=== PATIENT | female | born 1975 | race Caucasian/White ===

== ENCOUNTER 2018-02-23 13:10 | Emergency (ER) | payer OTHER ==
[~2018-02-23] VITALS: Ht 149.9 cm; Wt 60.4 kg
[2018-02-23 13:21] VITALS: Ht 149.9 cm; Wt 60.4 kg
[2018-02-23 14:33] LABS: BASOPHIL % 0.3 % (0-2); PLATELET COUNT 387 x10^3mcL (130-400); RED CELL DISTRIBUTION WIDTH 12.1 % (11.5-14.5)
[2018-02-23 14:47] LABS: CALCIUM 8.6 mg/dL (8.5-10.1); CARBON DIOXIDE 25.9 mmol/L (21-32); CHLORIDE SERUM 108 mmol/L (98-107); CREATININE SERUM 0.6 mg/dL (0.6-1.0); GFR1 > 60 mL/min; GLUCOSE SERUM 103 mg/dL (74-106); POTASSIUM SERUM 3.7 mmol/L (3.5-5.1); SODIUM SERUM 142 mmol/L (136-145)
[2018-02-23 14:55] LABS: ALBUMIN 3.4 g/dL (3.4-5.0); ALKALINE PHOSPHATASE 68 U/L (46-116); ALT/SGPT 24 U/L (14-59); AST/SGOT 18 U/L (15-37); LIPASE 256 IU/L (73-393); TOTAL PROTEIN, SERUM 7.1 g/dL (6.4-8.2)
[2018-02-23 15:15] LABS: microscopic required? NO
[2018-02-23 16:00] LABS: urine erythrocyte NEGATIVE (NEGATIVE)
[2018-02-23 16:40] VITALS: BP 120/58
== END 2018-02-23 16:40 | disposition home or self-care (01) ==
LOC: ED 13:10
PROVIDERS: Emergency Medicine
DX: R10.12 Left upper quadrant pain (principal); I10 Essential (primary) hypertension; E78.5 Hyperlipidemia, unspecified; Z90.49 Acquired absence of other specified parts of digestive tract; Z88.6 Allergy status to analgesic agent
CPT/HCPCS: 36415

== ENCOUNTER 2019-05-31 07:16 | Inpatient (IN) | payer OTHER ==
[~2019-05-31] VITALS: Ht 152.4 cm; Wt 61.9 kg
--- NOTE | 2019-05-31 07:30 | NUR ---
PT C/O TEARING LEFT FLANK PAIN SINCE 05/23/19 WITH INCREASING PAIN X1 DAY WITH 1 EPISODE OF VOMITING THIS AM, PT STS SHE IS ALSO CONSTIPATED HOWEVER "THE CONSTIPTION IS NORMAL FOR ME" PT REPORTS RECENT KIDNEY STONE REMOVAL PROCEDURE ON 05/23/19 PT STS "THEY PUT SOMETHING UP WHERE IF PEE I THINK A STENT" PT DENIES ANY ACTIVE BLEEDING AT THIS TIME, PT DENIES ANY RECENT TRAUMA AND/OR INJURY, PT DENIES ANY URINARY S/S AT THIS TIME, PT AAOX4, RESPS E/U, SKIN IS PINK DRY WARM AND INTACT, ABD SOFT, ROUND AND NONDISTENDED, PT PLACED ON FULL CM, NSR, AT BEDSIDE
--- NOTE | 2019-05-31 08:04 | NUR ---
EKG IN PROGRESS
[2019-05-31 08:20] LABS: BASOPHIL % 0.1 % (0-2); RED CELL DISTRIBUTION WIDTH 13.7 % (11.5-14.5)
--- NOTE | 2019-05-31 08:27 | NUR ---
PT AMBULATORY WITH STEADY GAIT TO RESTROOM
[2019-05-31 08:38] LABS: CALCIUM 7.8 mg/dL (8.5-10.1); CARBON DIOXIDE 22.5 mmol/L (21-32); CHLORIDE SERUM 102 mmol/L (98-107); GFR1 > 60 mL/min; GLUCOSE SERUM 108 mg/dL (74-106); POTASSIUM SERUM 3.6 mmol/L (3.5-5.1); SODIUM SERUM 137 mmol/L (136-145)
[2019-05-31 08:43] LABS: ALKALINE PHOSPHATASE 110 U/L (46-116); ALT/SGPT 48 U/L (14-59); AST/SGOT 58 U/L (15-37); BILIRUBIN TOTAL 0.41 mg/dL (0.20-1.00)
[2019-05-31 08:44] LABS: ALBUMIN 3.1 g/dL (3.4-5.0)
[2019-05-31 08:59] LABS: PLATELET COUNT 436 x10^3mcL (130-400)
--- NOTE | 2019-05-31 09:00 | NUR ---
PT TAKEN TO CT VIA HERMINIO
[2019-05-31 09:05] LABS: UA SPECIFIC GRAVITY <=1.005 (1.005-1.035); microscopic required? YES; urine erythrocyte 2+ (NEGATIVE)
--- NOTE | 2019-05-31 10:35 | NUR ---
PT ASLEEP BUT AROUSABLE IN POSITION OF COMFORT, RESPS E/U, AT BEDSIDE, CALL LIGHT WITHIN REACH
[2019-05-31] MEDS ORDERED: ZESTRIL20 MG PO (10:55)
[2019-05-31] MEDS ORDERED: METOPROLOL SUCC50 M2 PO (10:55)
--- NOTE | 2019-05-31 11:44 | NUR ---
PT ASLEEP BUT AROUSABLE IN POSITION OF COMFORT, RESPS E/U, VSS, NEW ICE PACK APPLIED TO BACK OF PT NECK
--- NOTE | 2019-05-31 11:57 | NUR ---
HYGIENE SUPPLIES AND NEW GOWN PROVIDED, BEDDING CHANGED WITH NEW LINEN
--- NOTE | 2019-05-31 12:50 | NUR ---
REPORT GIVEN TO AIXA BOURGEOIS TO RESUME CARE OF PT AT THIS TIME, MED SURG, PT AAOX4 AND STABLE FOR ADMIT
--- NOTE | 2019-05-31 13:15 | NUR ---
RECEIVED PT FROM ED VIA [facility], CAME IN DUE TO FLANK PAIN SINCE MAY 23. PT STATED THAT SHE HAD PROCEDURE DONE FOR HER KIDNEY STONES. AAOX4. C/O 8/10 ACHING FRONTAL HEADACHE AND MILD DIZZINESS ON AMBULATION. NO SOB NOTED, LUNG SOUNDS CTA. DENIES CHEST PAIN/PRESSURE. DENIES ABDOMINAL DISCOMFORT. 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 BOWEL SOUNDS HYPOACTIVE. ABLE TO PASS SOME GAS. LAST BM WAS 3 DAYS AGO. C/O MILD BURNING SENSATION ON URINATION. SIDE RAILS UPX2. CALL LIGHT ON REACH. PINEDA, CURBING STONECUTTER AT BEDSIDE TO DISCUSS PLAN OF CARE AND PT VERBALIZES UNDERSTANDING. ENDORSED TO PRIMARY NURSE NEDA FOR CONTINUITY OF CARE
[2019-05-31 13:26] VITALS: BP 156/81
[2019-05-31 13:37] VITALS: Ht 152.4 cm; Wt 61.9 kg
--- NOTE | 2019-05-31 15:40 | NUR ---
PT STATES BLADDER FEELS THOUGH IT IS FULL AT THIS TIME. ULTRASOUND AT BEDSIDE. WILL CONTINUE TO MONITOR
--- NOTE | 2019-05-31 17:35 | NUR ---
PT COMPLAINING OF "FEELING SICK". PT SHIVERING AND STATES THAT SHE FEELS LIKE SHE IS COLD. PT DENIES ANY NAUSEA OR FEELING DIZZY. PT TEMPERATURE IS 100.7 ORAL. IMPLEMENTED COOLING MEASURES AND WILL GIVE TYLENOL ORDERED. INFORMED PT TO KEEP BLANKETS AND SOCKS OFF. UNTIL TEMPERATURE HAS DECREASED. PT VERBALIZED UNDERSTANDING. FAMILY MEMBER AT BEDSIDE. WILL CONTINUE TO MONITOR.
[2019-05-31 18:04] VITALS: BP 182/89
--- NOTE | 2019-05-31 18:25 | NUR ---
RECHECKED PT TEMPERATURE AND IS 102.4 ORAL, RECHECKED 102.7. PT STATES FEELING BETTER THAN SHE DID BEFORE AND IS NO LONGER VISIBALL SHIVERING. PROVIDED MORE ICE PACKS AND REPLACED OLD ONES. AC TURNED ON AND BLANKETS REMOVED. REINFORCED EDUCATION TO PT, PT VERBALIZED UNDERSTANDING. WILL CONTINUE TO MONITOR.
--- NOTE | 2019-05-31 18:56 | NUR ---
RECHECKED TEMPERATURE AND IS 103.1 ORAL. PT STATES DOES NOT FEEL COLD AND IS NOT SHIVERING. NOTIFIED./
[2019-05-31 18:57] VITALS: BP 157/59
--- NOTE | 2019-05-31 19:30 | NUR ---
REC'D PT FROM DAY NURSE. FAMILY AT BEDSIDE. PT RESTING IN BED. AAOX4, SPEECH CLEAR, FOLLOWS COMMANDS. MED SURG, NO TELE. C/O PALMER 07/07. TO GIVE RECTAL TYLENOL. NO EDEMA NOTED. DENIES RESP DISTRESS OR SOB. BREATHING EVEN/UNLABORED ON RA. ABD SOFT/ROUND. C/O TENDERNESS TO L SIDE UPON PALPATION. DENIES PAIN AT REST. VOIDING FREELY. AMBULATORY. SKIN INTACT. IV TO RAC PATENT AND INFUSING, SITE WNL. CALL LIGHT WITHIN REACH, BED AT LOWEST POSITION. WILL CONTINUE TO MONITOR.
--- NOTE | 2019-05-31 19:31 | NUR ---
ENDORSED TO NURSE ANNIKA
[2019-05-31 20:49] VITALS: BP 158/72
--- NOTE | 2019-05-31 21:05 | NUR ---
PALMER 7/ AND TEMP 100.8 S/P RECTAL TYLENOL. DR. DOUGHERTY AND DR. PUENTE MADE AWARE. STATED OK TO MONITOR AND GIVE TYLENOL PRN. NO CHANGES IN ORDERS. NORCO GIVEN FOR PALMER. COOLING MEASURES IN PLACE. WILL CONTINUE TO MONITOR.
--- NOTE | 2019-05-31 21:20 | NUR ---
PT C/O CONSTIPATION. NO BM X4 DAYS. REQUESTING LAXITIVE IN AM D/T TYLENOL GIVEN RECTALLY EARLIER. DR. PUENTE AND DR. DOUGHERTY MADE AWARE.
--- NOTE | 2019-06-01 00:23 | NUR ---
PT RESTING IN BED WITH EYES CLOSED. LAYING ON L SIDE. BREATHING EVEN/UNLABORED ON RA. AWAKENS WITH VERBAL STIMULI. RECHECKED ORAL TEMP: 98.7. COOLING MEASURES IN PLACE. CALL LIGHT WITHIN REACH, BED AT LOWEST POSITION, AT BEDSIDE ON RECLINER. WILL CONTINUE TO MONITOR.
--- NOTE | 2019-06-01 03:09 | NUR ---
PT C/O 07/07 PALMER. NORCO GIVEN PER ORDER. WILL MONITOR FOR RELIEF.
[2019-06-01 03:54] VITALS: BP 182/68
[2019-06-01 05:04] VITALS: BP 139/67
--- NOTE | 2019-06-01 05:23 | NUR ---
PT SLEEPING. BREATHING EVEN/UNLABORED ON RA. AFEBRILE THIS MORNING. NO S/SX OF PAIN NOTED. CALL LIGHT WITHIN REACH, BED AT LOWEST POSITION. WILL ENDORSE TO DAY NURSE.
--- NOTE | 2019-06-01 06:07 | NUR ---
PT C/O PALMER 07/07. NORCO NOT DUE AT THIS TIME. TYLENOL GIVEN PER REQUEST. NO BM LAST NIGHT. MIRALAX GIVEN. COOLING MEASURES REMAIN IN PLACE. CALL LIGHT WITHIN REACH, BED AT LOWEST POSITION. WILL ENDORSE TO DAY NURSE.
[2019-06-01 06:22] LABS: BASOPHIL % 0.4 % (0-2); PLATELET COUNT 338 x10^3mcL (130-400); RED CELL DISTRIBUTION WIDTH 13.9 % (11.5-14.5)
[2019-06-01 06:42] LABS: CALCIUM 7.5 mg/dL (8.5-10.1); CARBON DIOXIDE 20.3 mmol/L (21-32); CHLORIDE SERUM 105 mmol/L (98-107); CREATININE SERUM 0.8 mg/dL (0.6-1.0); GFR1 > 60 mL/min; GLUCOSE SERUM 100 mg/dL (74-106); POTASSIUM SERUM 3.7 mmol/L (3.5-5.1); SODIUM SERUM 137 mmol/L (136-145)
--- NOTE | 2019-06-01 07:10 | NUR ---
RECEIVED REPORT FROM ANNIKA RN, PT IN BED W/ NO ACUTE DISTRESS
--- NOTE | 2019-06-01 07:15 | NUR ---
PT IN BED, IN NO ACUTE DISTRESS, VERBAL, ABLE TO MAKE NEEDS KNOWN, CALM AND COPPERATIVE, PERRLA, NO REDNESS/DRAINAGE, RESP EVEN, NO SOB/COUGH, MEDSURG, DENIED CP/PRESSURE, DENIED N/V, REPORTED PALMER, 04/06, DULL MEDICATED PER PRN EMAR, TAKEN WELL, CHEST RISE SYMMETRICALLY, BS ACTIVE X 4, REPORTED BURING DURING VOIDING, UA (+), ROCEPHIN IVPB, IV PATENT AND INFUSIGN WELL, PALP PULSES, CAP REFILL < 3S, SKIN D/W/C, ALL NEEDS ADDRESSED AT THIS TIME, SAFETY MONITOR, VARSHA TO MONITOR
[2019-06-01 08:08] VITALS: BP 132/71
--- NOTE | 2019-06-01 09:14 | NUR ---
AM MED GIVEN PER EMAR, TAKEN WELL, NO ASE NOTED AT THIS TIME, CONTINUE TO MONITOR
--- NOTE | 2019-06-01 10:30 | NUR ---
PT SLEEPING IN BED, IN NO APPARENT DISTRESS, FAMILY AT BEDSIDE, CONTINUE TO MONITOR
--- NOTE | 2019-06-01 12:54 | NUR ---
PT HAD LUNCH, TAKEN WELL, ASISTED TO BATHROOM, VOID X 1, BACK TO BED, RESTING W/ EYE CLOSED, REPORTED NO PAIN/DISCOMFORT AT THIS TIME, CONTINUE TO MONITOR
[2019-06-01 14:22] VITALS: BP 168/86
--- NOTE | 2019-06-01 14:24 | NUR ---
MACHINE SETTER SHEET METAL PINEDA ALANIZ MADE AWARE OF PT ENW V/S 98.1, 168/86 (104), 81, 97% RA, 20, 0/10, NNO, PT SLEEPING IN BED, IN NO ACUTE DISRESS, CONTINUE TO MONITOR
[2019-06-01 17:34] VITALS: BP 156/81
--- NOTE | 2019-06-01 17:40 | NUR ---
PT RESTING IN BED, IN NO ACUTE DISTRESS, RESP EVEN, MEDSURG, CHEST RISE SYMMETRICALLY, ABD ROUND AND NON-TENDER, IV PATENT AND INFUSING WELL, DRESSING CDI, FAMILY AT BEDSIDE, ALL NEEDS ADDRESSED AT THIS TIME, SAFETY PROTOCL FOLLOWED, WILL ENDORSE TO ONCOMING RN
--- NOTE | 2019-06-01 19:00 | NUR ---
RECEIVED PT FROM DAY SHIFT RN. PT IS ALERT AND ORIENTED TO PERSON PLACE TIME AND SITUATION AND IS ABLE TO FOLLOW COMMANDS. FAMILY IS CURRENTLY AT THE BEDSIDE. PT DENIES CHEST PAIN OR SHORTNESS OF BREATH ON ROOM AIR. THERE ARE NO USE OF ACCESSORY MUSCLES OR LABORED BREATHING ON ASSESSMENT. PT DENIES ANY BURNING WITH URINATION AT THIS TIME. DENIES FLANK PAIN AT THIS TIME. PT IS AMBULATORY INDEPENDENTLY BUT ENCOURAGED PT TO ASK FOR ASSISTANCE IF NEEDED WHEN ATTEMPTING TO AMBULATE. NS RUNNING THROUGH RAC 20G IV, CLEAN DRY AND INTACT. SAFETY MEASURES ARE IN PLACE. BED IS IN THE LOWEST POSITION. CALL LIGHT IS WITHIN REACH. WILL CONTINUE TO MONITOR PT.
[2019-06-01 20:59] VITALS: BP 166/82
--- NOTE | 2019-06-01 23:28 | NUR ---
PT RESTING IN BED AT THIS TIME. PT DENIES PAIN OR DISTRESS. BED IN LOWEST POSTION. TYLENOL RELIEVED HEADACHE PT STATES PAIN 0/10. WILL CONTINUE TO MONITOR
--- NOTE | 2019-06-02 02:17 | NUR ---
PT RESTING IN BED WITH EYES CLOSED. NO DISTRSS NOTED.
[2019-06-02 06:06] VITALS: BP 153/82
[2019-06-02 07:08] LABS: CALCIUM 7.3 mg/dL (8.5-10.1); CARBON DIOXIDE 25.6 mmol/L (21-32); CHLORIDE SERUM 108 mmol/L (98-107); CREATININE SERUM 0.7 mg/dL (0.6-1.0); GFR1 > 60 mL/min; GLUCOSE SERUM 100 mg/dL (74-106); POTASSIUM SERUM 3.4 mmol/L (3.5-5.1); SODIUM SERUM 142 mmol/L (136-145)
--- NOTE | 2019-06-02 07:45 | NUR ---
PATIENT A/OX4 ABLE TO MAKE NEEDS KNOWN AND FOLLOW COMMANDS. REPORTS HEADACHE 8.5/10, WILL MEDICATE. SPEECH CLEAR EQUAL TRACTOR SWEEPER DRIVER, PERIPHERAL PULSES PALPABLE, DENIES NUMBNESS/TINGLING, NO EDEMA. DENIES CHEST PAIN. LUNGS CTA, NO RESP DISTRESS ON RA. BOWEL SOUNDS HYPOACTIVE, STATES LAST BM 6 DAYS AGO AND REPORTS FEELING CONSTIPATED, WILL NOTIFY DR. DENIES N/V. VOIDS FREELY AND REPORTS NO LONGER FEELING PAIN UPON URINATION. SKIN INTACT. IV ACCESS TO [facility] SITE WNL. CALL LIGHT WITHIN REACH.
[2019-06-02 07:54] LABS: BASOPHIL % 0.5 % (0-2); PLATELET COUNT 341 x10^3mcL (130-400); RED CELL DISTRIBUTION WIDTH 13.6 % (11.5-14.5)
[2019-06-02 08:24] VITALS: BP 182/91
--- NOTE | 2019-06-02 10:16 | NUR ---
[facility] MADE AWARE THAT PATIENT IS REQUESTING RELIEF FOR CONSTIPATION, NO BM SINCE LAST THURSDAY (6 DAYS).
[2019-06-02 17:28] VITALS: BP 146/78
--- NOTE | 2019-06-02 17:31 | NUR ---
PATIENT C/O PERSISTENT HEADACHE. TYLENOL GIVEN. PATIENT REPORTS HAVING BM TODAY, GOOD AMOUNT.
--- NOTE | 2019-06-02 18:14 | NUR ---
PATIENT GOING DOWN TO RAD FOR CT HEAD. TORADOL ORDERED BY BUFFING WHEEL PRESSER CONTAINS ASA, PATIENT STATES SHE DEVELOPS SHIVERING WHEN SHE TAKES ASPIRIN, PATIENT WILLING TO TAKE TO HELP WITH HEADACHE. PHARMACIST NOIFIED. WILL MONITOR FOR ANY ALLERGIC REACTION WHILE ADMINISTERING.
--- NOTE | 2019-06-02 18:43 | NUR ---
PATIENT BACK FROM CT. TORADOL IV GIVEN FOR HEADACHE, NO ADVERSE REACTION OBSERVED. WILL CONT TO MONITOR AND ENDORSE TO NOC NURSE.
--- NOTE | 2019-06-02 20:04 | NUR ---
PT RECIEVED FROM DAY NURSE. PT RESTING IN BED AT THIS TIME. NO S/S OF PAIN OR DISCOMFORT. A/O X4, CALM AND COOPERATIVE AT THIS TIME. PT M/S DENIES CP, NV, DIZZINESS, OR PALPATATIONS. PALPABLE PULSES, NO EDEMA NOTED AT THIS TIME. BREATHING E/U ON RA. ABD SOFT AND ROUND. DENIES PAIN TO PALPATATION. AMBULATORY AT BASELINE. IV TO RAC INTACT AND INFUSING. ALL QUESTIONS AND CONCERNS ADDRESSED. BED AT LOWEST POSITON. CALL LIGHT WITHIN REACH. WILL CONTINUE TO MONITOR.
[2019-06-02 21:22] VITALS: BP 130/62
--- NOTE | 2019-06-02 22:50 | NUR ---
DR. PUENTE TALKED TO PTS MOM ELIUD VIA PHONE REGARDING PTS TRANSFER TO [facility]. PTS MOM AGREED OF PTS TRANSFER PER DR PUENTE. PT SPOKEN WITH HER MOM AND PT STATED MOM WILL BE HERE BEFORE THE TRANSFER.
[2019-06-03 05:13] VITALS: BP 140/72
--- NOTE | 2019-06-03 06:14 | NUR ---
PT RESTING IN BED AT THIS TIME. NO S/S OF PAIN OR DISTRESS NOTED. BREATHING E/U ON RA. NO SIGNS OF ACUTE DISTRESS AT THIS TIME. ALL NEEDS ATTENDED TO THIS SHIFT. BED AT LOWEST POSITION. CALL LIGHT WITHIN REACH. WILL ENDORSE TO DAY NURSE.
[2019-06-03 07:30] VITALS: BP 169/85
--- NOTE | 2019-06-03 07:30 | NUR ---
RECEIVED PATIENT IN BED WITH AT BEDSIDE. ALERT AND ORIENTED, ABLE TO VERBALIZE NEEDS WELL. IVF INFUSING WELL TO RT A/C. SITE PATENT. NO RESP DISTRESS NOTED, DENIES ANY COUGH OR SOB. ABD SOFT BOWEL SOUNDS ACTIVE. LAST BM YESTERDAY PER PATIENT. DENIES ANY PAIN WITH URINATION. AMBULATES AD ARLEN WITH GOOD STEADY GAIT. WILL CONTINUE TO MONITOR.
--- NOTE | 2019-06-03 08:37 | NUR ---
PATIENT C/O HAVING A H/A 9/10 ON THE PAIN SCALE WILL MEDICATE ORDERED.
[2019-06-03] MEDS ORDERED: BACTRIM DS1 TAB PO (08:49)
[2019-06-03 10:13] VITALS: BP 149/80
[2019-06-03 10:58] VITALS: BP 149/80
--- NOTE | 2019-06-03 11:21 | NUR ---
PATIENT IS READY FOR D/C HOME. HL DC'D. PRESCRIPTION AND WORK NOTE GIVEN. DISCHARGE INSTRUCTIONS AND FOLLOW UP INSTRUCTIONS GIVEN. PERSONAL BELONGINGS LIST SIGNED, AND EDUCATION PROVIDED. CONDITION APPEAR STABLE AT THIS TIME.
== END 2019-06-03 11:24 | disposition home or self-care (01) | DRG 690 ==
LOC: ED 07:16 → MU 12:44
PROVIDERS: Emergency Medicine; ADMIT Internal Medicine
DX: N10 Acute pyelonephritis (principal); E44.0 Moderate protein-calorie malnutrition; E87.2 Acidosis; E83.51 Hypocalcemia; E78.5 Hyperlipidemia, unspecified; I10 Essential (primary) hypertension; N83.202 Unspecified ovarian cyst, left side; B96.20 Unspecified Escherichia coli [E. coli] as the cause of diseases classified elsewhere; Z87.442 Personal history of urinary calculi; Z88.6 Allergy status to analgesic agent; Z90.710 Acquired absence of both cervix and uterus; Z90.49 Acquired absence of other specified parts of digestive tract
CPT/HCPCS: G0378; J0696; J1885; J7030; J7060; Q0092; Q9967

== ENCOUNTER 2020-07-03 16:57 | Emergency (ER) | payer OTHER ==
[~2020-07-03] VITALS: Ht 149.9 cm; Wt 62.1 kg
[~2020-07-03 16:57] MED LIST: BACTRIM DS1 TAB PO; METOPROLOL SUCC50 M2 PO; ZESTRIL20 MG PO
[2020-07-03 17:13] VITALS: BP 207/97; Ht 149.9 cm; Wt 62.1 kg
== END 2020-07-03 19:01 | disposition home or self-care (01) ==
LOC: ED 16:57
DX: L60.0 Ingrowing nail (principal); I10 Essential (primary) hypertension; E78.5 Hyperlipidemia, unspecified; Z90.49 Acquired absence of other specified parts of digestive tract; Z90.710 Acquired absence of both cervix and uterus; Z88.6 Allergy status to analgesic agent
CPT/HCPCS: J2001